=== PATIENT | male | born 1955 | race Two or more races ===

== ENCOUNTER 2024-07-26 21:50 | Emergency (ER) | payer OTHER ==
[~2024-07-26] VITALS: Ht 180.3 cm; Wt 90.9 kg
--- NOTE | 2024-07-27 00:04 | DVH ---
CLINICAL INDICATION: INJURY TO FINGERS TECHNIQUE: XY L HAND 3V XRAY Comparison: None FINDINGS/IMPRESSION: : There is no evidence of acute fracture or dislocation. Soft tissues are unremarkable.
--- NOTE | 2024-07-27 00:04 | DVH ---
CLINICAL INDICATION: INJURY TO FINGERS TECHNIQUE: XY R HAND 3 VIEW XRAY Comparison: None FINDINGS/IMPRESSION: : There is no evidence of acute fracture or dislocation. Soft tissues are unremarkable.
[2024-07-27 01:18] VITALS: BP 118/64; PULSE 68; RESP 18; TEMP 98.4; O2SAT 93
[2024-07-27] MEDS: LIDOCAINE 1% HCL (LOCAL ANESTH.) INJ 20ML MDV ID ONE (01:52)
[2024-07-27] MEDS: HYDROcodone-ACET 5/325MG TAB PO ONE (01:53)
[2024-07-27] MEDS ORDERED: AUG875T PO (02:29)
--- NOTE | 2024-07-27 02:29 | ED.PDOC ---
[place]mo. trauma (HPI) HPI Comments PATIENT TRIPPED, FALLING FORWARD ONTO HIS HANDS/KNUCKLES. RIGHT SECOND, THIRD, FOURTH DIGITS HAVE DEEP LACERATIONS, LEFT SECOND AND THIRD DIGITS HAVE DEEP LACERATIONS. THE THIRD RIGHT DIGIT DOES NOT EXTEND ON ITS OWN. MANUALLY ONLY. 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 Information Source: Patient Mode of Arrival: Ambulatory Past Medical History PAST MEDICAL HISTORY: Denies Surgical History: Denies all surgeries Family History Family History: Reviewed,noncontributory to illness Social History Smoker: Non-Smoker Alcohol: Denies ETOH Use Drugs: Denies Drug Use Constitutional: denies: chills, diaphoresis, fatigue, fever, malaise, sweats, weakness, others EENTM: denies: blurred vision, double vision, ear bleeding, ear discharge, ear drainage, ear pain, ear ringing, eye pain, eye redness, hearing loss, mouth pain, mouth swelling, nasal discharge, nose bleeding, nose congestion, nose pain, photophobia, tearing, throat pain, throat swelling, voice changes, others Respiratory: denies: cough, hemoptysis, orthopnea, SOB at rest, shortness of breath, SOB with excertion, stridor, wheezing, others Cardiovascular: denies: chest pain, dizzy spells, diaphoresis, Dyspnea on exertion, edema, irregular heart beat, left arm pain, lightheadedness, palpitations, PND, syncope, others Gastrointestinal: denies: abdomen distended, abdominal pain, blood streaked bowels, constipated, diarrhea, dysphagia, difficulty swallowing, hematemesis, melena, nausea, poor appetite, poor fluid intake, rectal bleeding, rectal pain, vomiting, others Genitourinary: denies: burning, dysuria, flank pain, frequency, hematuria, incontinence, penile discharge, penile sore, pain, testicle pain, testicle swelling, urgency, others Neurological: denies: dizziness, fainting, headache, left sided numbness, left sided weakness, numbness, paresthesia, pre-existing deficit, right sided numbness, right sided weakness, seizure, speech problems, tingling, tremors, weakness, others Musculoskeletal: denies: back pain, gout, joint pain, joint swelling, muscle pain, muscle stiffness, neck pain, others Integumetry: reports: laceration (MULTIPLE DIGITS BILATERAL HANDS); denies: bruises, change in color, change in hair/nails, dryness, lesions, lumps, rash, wounds, others Allergic/Immunocompromised: denies: Difficulty Healing, Frequent Infections, Hives, Itching, others Hematologic/Lymphatic: denies: anemia, blood clots, easy bleeding, easy bruising, swollen glands, others Endocrine: denies: excessive hunger, excessive sweating, excessive thirst, excessive urination, flushing, intolerance to cold, intolerance to heat, unexplained weight gain, unexplained weight loss, others Psychiatric: denies: anxiety, bipolar disorder, depression, hopeless, panic disorder, schizophrenia, sleepless, suicidal, others Physical Exam General Appearance: No Apparent Distress, Normal HEENT: Pharynx Normal Neck: Full Range of Motion, Non-Tender Respiratory: Lungs Clear, No Respiratory Distress, Normal Breath Sounds Cardiovascular: No Edema, No JVD, No Murmur, No Gallop, Normal Peripheral Pulses, Regular Rate/Rhythm Breast Exam: Deferred Gastrointestinal: No Organomegaly, Non Tender, No Pulsatile Mass, Normal Bowel Sounds, Soft Genitalia: Deferred Pelvic: Deferred Rectal: Deferred Extremities: Normal capillary refill, Normal inspection, Normal range of motion, Non-tender, No pedal edema Musculoskeletal : Apperance: Normal Neurologic: Alert, 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 1.0 CM LACERATION TO MIDDLE FINGER WITH NOTED EDEMA AND NOTED AVULSION. 0.5 CM LACERATION NOTED TO RING FINGER KNUCKLE. LEFT HAND INDEX FINGER NOTED 0.5 CM LACERATION. MIDDLE FINGER KNUCKLE 0.5 CM LACERATION NOTED. BLEEDING CONTROLLED ALL LACERATIONS ALL FINGERS WITH STRENGTH SENSORY AND MOTION INTACT), Normal Color, Warm Lymphatic: No Adenopathy Was a procedure done? Was a procedure done?: Yes Sedation Sedation?: No Laceration Repair : Location RIGHT HAND INDEX FINGER KNUCKLE WITH 0.5 CM LACERATION. 1.0 CM LACERATION TO MIDDLE FINGER WITH NOTED EDEMA AND NOTED AVULSION. 0.5 CM LACERATION NOTED TO RING FINGER KNUCKLE. LEFT HAND INDEX FINGER NOTED 0.5 CM LACERATION. MIDDLE FINGER KNUCKLE 0.5 CM LACERATION NOTED. BLEEDING CONTROLLED ALL LACERATIONS ALL FINGERS WITH STRENGTH SENSORY AND MOTION INTACT Length RIGHT HAND INDEX FINGER KNUCKLE WITH 0.5 CM LACERATION. 1.0 CM LACERATION TO MIDDLE FINGER WITH NOTED EDEMA AND NOTED AVULSION. 0.5 CM LACERATION NOTED TO RING FINGER KNUCKLE. LEFT HAND INDEX FINGER NOTED 0.5 CM LACERATION. MIDDLE FINGER KNUCKLE 0.5 CM LACERATION NOTED. BLEEDING CONTROLLED ALL LACERATIONS ALL FINGERS WITH STRENGTH SENSORY AND MOTION INTACT Anesthetic: Lidocaine, Without epi Laceration Repair Prep: Saline, by Irrigation Laceration Repair Wound Comple: epidermis/dermis repair Laceration Repair: Number of sutures (18), Simple Differential Diagnosis Multiple Trauma: Fractures, Foreign Body, Hematoma X-Ray, Labs, Meds, VS Vital Signs Date Time Temp Pulse Resp B/P (MAP) Pulse Ox O2 Delivery O2 Flow Rate FiO2 07/27/24 01:18 98.4 68 18 118/64 (82) 93 98.4 07/27/24 01:18 68 18 93 Room Air 07/26/24 22:20 98.4 67 18 117/71 (86) 95 98.4 Current Medications Medications (Trade) Dose Ordered Sig/[place] Route Start Time Stop Time Status Last Admin Acetaminophen/ Hydrocodone Bitart (Jackson 5/325MG Tab) 2 tab ONCE ONCE PO 07/27/24 01:45 07/27/24 01:46 DC 07/27/24 01:53 X-Ray, Labs, Meds, VS Comment SEE PROCEDURE NOTE. PATIENT'S FINGERS PLACED IN SPLINTS DUE TO BEING AT THE KNUCKLE. PROPHYLACTIC ANTIBIOTICS SCRIPT TO PATIENT'S PHARMACY. TAKE MEDICATIONS PRESCRIBED SIDE EFFECTS DISCUSSED. FOLLOW UP WITH YOUR PCP IN 2 DAYS FOR FOLLOW UP RE-EVALUATION OF LACERATIONS. ER RETURN PRECAUTIONS GIVEN PATIENT INDICATES UNDERSTANDING AGREES WITH DISCHARGE PLAN OF CARE. BILATERAL HAND X-RAYS SHOW NO ACUTE FRACTURES, OSSEOUS LESIONS, OR DISLOCATIONS. NO FOREIGN BODIES WELL Time of 1ST Reevaluation: 02:27 Reevaluation 1ST: Improved Patient Education/Counseling: Diagnosis, Treatment, Prognosis, Need For Follow Up Family Education/Counseling: Diagnosis, Treatment, Prognosis, Need For Follow Up Departure 1 Departure Time of Disposition: : Impression: Primary Impression: Laceration of multiple sites of right hand and fingers without complication Qualified Codes: S61.411A - Laceration without foreign body of right hand, initial encounter; S61.219A - Laceration without foreign body of unspecified finger without damage to nail, initial encounter Additional Impression: Laceration of multiple sites of left hand and fingers without complication Qualified Codes: S61.412A - Laceration without foreign body of left hand, initial encounter; S61.219A - Laceration without foreign body of unspecified finger without damage to nail, initial encounter Disposition: HOME / SELF CARE / HOMELESS Condition: Stable e-Prescriptions Amoxicillin & Pot Clavulanate (AUGMENTIN TABLET) 875 Mg Tb 875 MG PO BID for 5 Days, #10 TAB Prov: NORY MISHRA 07/27/24 Discharged With: Relative Critical Care Note Critical Care Time?: No Stability Stability form required: NORY Gonsales Jul 27, 2024 02:29
== END 2024-07-27 02:43 | disposition home or self-care (01) ==
LOC: ER 21:54
DX: S61.210A Laceration without foreign body of right index finger without damage to nail, initial encounter (principal); S61.212A Laceration without foreign body of right middle finger without damage to nail, initial encounter; S61.211A Laceration without foreign body of left index finger without damage to nail, initial encounter; S61.213A Laceration without foreign body of left middle finger without damage to nail, initial encounter; W01.0XXA Fall on same level from slipping, tripping and stumbling without subsequent striking against object, initial encounter; Y93.89 Activity, other specified; Y92.89 Other specified places as the place of occurrence of the external cause; Y99.8 Other external cause status
CPT/HCPCS: 12002; 73130; 99283; J2003